=== PATIENT | male | born 1960 | race Hispanic/Latino ===

== ENCOUNTER 2019-10-18 19:07 | Emergency (ER) | payer OTHER, SELFPAY ==
[2019-10-18 20:33] LABS: Absolute Lymphocytes (CBC) 1.3 K/uL (0.7-4.9); Basophils % 0.1 % (0-1.3); Hematocrit 48.1 % (39.6-49.0); Lymphocytes % 11.7 % (15.3-44.8); MPV 8.2 fL (7.6-11.3); RBC Red Blood Cell Count 5.66 M/uL (4.33-5.43)
[2019-10-18] MEDS ORDERED: ONDANSETRON 4 MG/2 ML VIAL ONE (20:37)
[2019-10-18] MEDS ORDERED: MORPHINE 2 MG/ML SYR ONE (20:37)
[2019-10-18 20:51] LABS: Albumin 3.9 g/dL (3.4-5.0); Bilirubin Direct 0.1 mg/dL (0-0.2); Bilirubin Total 0.6 mg/dL (0.2-1.0); Potassium 3.6 mmol/L (3.5-5.1); Protein, Total 7.4 g/dL (6.4-8.2)
--- NOTE | 2019-10-18 21:12 | RAD REPORT ---
EXAM DESCRIPTION: CTAbdomen Pelvis W Contrast - 10/18/2019 9:01 pm CLINICAL HISTORY: Abdominal pain. Abd pain;Abdominal distention COMPARISON: CT ABD PELVIS W CONTRAST dated 08/07/2012 TECHNIQUE: Biphasic CT imaging of the abdomen and pelvis was performed with 100 ml non-ionic IV cont rast. All CT scans are performed using dose optimization technique as appropriate and may include automated exposure control or mA/KV adjustment according to patient size. FINDINGS: The lung bases are clear. Mild fatty liver is present. No focal mass or biliary dilatation seen. The spleen, pancreas, adrenal glands and right kidney are normal. Left renal calculi are present, largest inferiorly measuring 6 mm . No ureter or bladder calculi seen. No bowel obstruction, free air, free fluid or abscess. Fluid-filled and mildly dilated small bowel lo ops are present throughout the abdomen. The appendix is normal. Sigmoid diverticulosis coli is presen t without diverticulitis. No evidence of significant lymphadenopathy. Small fat containing inguinal h ernias. No suspicious bony findings. Prostate gland is enlarged and projects into the bladder base. IMPRESSION: Multiple fluid-filled small bowel loops are present throughout the abdomen. This pattern is favored to represent a nonspecific enteritis. Given that early bowel obstruction can have a similar appearance, repeat imaging would be recommended if symptoms progress or persist over time.
[2019-10-18] MEDS ORDERED: DICYCLOMINE HCL 10 MG CAP ONE (22:13)
--- NOTE | 2019-10-18 22:19 | ER ---
Nurse's Notes [facility] Name: Sal Ortiz Age: 59 yrs Sex: Male : 1960 Arrival Date: 10/18/2019 Time: 19:07 Bed 17 Private MD: Diagnosis: Unspecified abdominal pain;Diarrhea, unspecified Presentation: 10/17 19:32 Chief complaint: Patient's son or daughter states: Upper abdominal pain started ca1 yesterday. Mid and low back pain since yesterday. Reports diarrhea this morning. Denies N/V. Denies fever. Denies urinary symptoms. Coronavirus screen: Proceed with normal triage. Patient denies a cough. Patient denies shortness of breath or difficulty breathing. Patient denies measured and/or subjective temperature greater than 100.4F prior to today's visit. Patient denies travel on a cruise ship or to a country the [facility] currently lists as an affected area. Patient denies contact with known and/or suspected case of COVID-19. Ebola Screen: Patient negative for fever greater than or equal to 101.5 degrees Fahrenheit, and additional compatible Ebola Virus Disease symptoms Patient denies exposure to infectious person. Patient denies travel to an Ebola-affected area in the 21 days before illness onset. No symptoms or risks identified at this time. Initial Sepsis Screen: Does the patient meet any 2 criteria? No. Patient's initial sepsis screen is negative. Does the patient have a suspected source of infection? No. Patient's initial sepsis screen is negative. Risk Assessment: Do you want to hurt yourself or someone else? Patient reports no desire to harm self or others. Onset of symptoms was October 18, 2019. 19:32 Method Of Arrival: Ambulatory ca1 19:32 Acuity: HUMBERTO 2 ca1 Historical: - Allergies: 19:36 No Known Allergies; ca1 - Home Meds: 19:36 losartan oral oral [Active]; ca1 - PMHx: 19:36 Hypertension; ca1 - PSHx: 19:36 None; ca1 - Immunization history:: Adult Immunizations up to date. - Social history:: Smoking status: Patient denies any tobacco usage or history of. Screenin:35 Abuse screen: Denies threats or abuse. Nutritional screening: No deficits noted. jd3 Tuberculosis screening: No symptoms or risk factors identified. Fall Risk Ambulatory Aid- None/Bed Rest/Nurse Assist (0 pts). Gait- Normal/Bed Rest/Wheelchair (0 pts) Mental Status- Oriented to own ability (0 pts). Total Post Fall Scale indicates No Risk (0-24 pts). Assessment: 20:34 General: Appears in no apparent distress. uncomfortable, Behavior is calm, cooperative, jd3 appropriate for age. Pain: Denies pain. Neuro: Level of Consciousness is awake, alert, obeys commands, Oriented to person, place, time, situation. Cardiovascular: Denies chest pain, Capillary refill < 3 seconds Patient's skin is warm and dry. Respiratory: Airway is patent Respiratory effort is even, unlabored, Respiratory pattern is regular, symmetrical, Denies cough, shortness of breath. GI: Abdomen is round distended, Bowel sounds present X 4 quads. Abd is soft X 4 quads Abdomen is tender to palpation in right upper quadrant and left upper quadrant Reports diarrhea. : No signs and/or symptoms were reported regarding the genitourinary system. EENT: No signs and/or symptoms were reported regarding the EENT system. Derm: Skin is intact, Skin is dry, Skin is normal, Skin temperature is warm. Musculoskeletal: Circulation, motion, and sensation intact. Range of motion: intact in all extremities. 22:10 Reassessment: Patient appears in no apparent distress at this time. Patient and/or jd3 family updated on plan of care and expected duration. Pain level reassessed. Patient is alert, oriented x 3, equal unlabored respirations, skin warm/dry/pink. Patient states feeling better. 23:00 Reassessment: Patient appears in no apparent distress at this time. Patient and/or jd3 family updated on plan of care and expected duration. Pain level reassessed. Patient is alert, oriented x 3, equal unlabored respirations, skin warm/dry/pink. Patient states feeling better. Vital Signs: 19:32 BP 161 / 101; Pulse 87; Resp 18 S; Temp 98(TE); Pulse Ox 99% on R/A; Weight 99.79 kg ca1 (R); Height 5 ft. 9 in. (175.26 cm) (R); Pain 9/10; 20:36 BP 143 / 94; Pulse 89; Resp 16 S; Pulse Ox 97% on R/A; jd3 22:10 BP 137 / 93; Pulse 75; Resp 16 S; Pulse Ox 98% on R/A; jd3 23:00 BP 140 / 96; Pulse 76; Resp 16 S; Pulse Ox 98% on R/A; jd3 19:32 Body Mass Index 32.49 (99.79 kg, 175.26 cm) ca1 ED Course: 19:07 Patient arrived in ED. ds1 19:35 Triage completed. ca1 19:36 Arm band placed on right wrist. ca1 20:03 Anthony Galvan PA is PHCP. cp 20:03 Melisa Monk MD is Attending Physician. cp 20:15 Darion Bennett, RN is Primary Nurse. jd3 20:30 Inserted saline lock: 20 gauge in right antecubital area, using aseptic technique. jd3 Blood collected. 20:35 Patient has correct armband on for positive identification. Placed in gown. Bed in low jd3 position. Call light in reach. Side rails up X 1. Adult w/ patient. Pulse ox on. NIBP on. 21:01 CT Abd/Pelvis - IV Contrast Only In Process Unspecified. EDMS 22:59 No provider procedures requiring assistance completed. IV discontinued, intact, jd3 bleeding controlled, No redness/swelling at site. Pressure dressing applied. Administered Medications: 20:33 Drug: Zofran (Ondansetron) 4 mg Route: IVP; Site: right antecubital; jd3 21:30 Follow up: Response: No adverse reaction jd3 20:34 Drug: morphine 2 mg Route: IVP; Site: right antecubital; jd3 21:30 Follow up: Response: No adverse reaction; RASS: Alert and Calm (0) jd3 22:10 Drug: Bentyl 20 mg Route: PO; jd3 23:00 Follow up: Response: No adverse reaction jd3 Outcome: 22:18 Discharge ordered by . cp 23:00 Discharged to home ambulatory, with family. jd3 23:00 Condition: stable 23:00 Discharge instructions given to patient, family, Instructed on discharge instructions, follow up and referral plans. medication usage, Demonstrated understanding of instructions, follow-up care, medications, Prescriptions given X 1. 23:01 Patient left the ED. jd3 Signatures: Dispatcher [employer] EDPA Rivka Espinosa ds1 Anthony Galvan PA PA cp Davies, Jonathon, RN RN jd3 Paulette Mcgrath RN RN ca1 Corrections: (The following items were deleted from the chart) 19:35 19:32 Acuity: HUMBERTO 3 ca1 ca1 19:35 19:32 BP 161 / 101; Pulse 87bpm; Resp 18bpm; Spontaneous; Pulse Ox 99% RA; Temp 98F ca1 Temporal; 99.79 kg Reported; Height 5 ft. 9 in. Reported; BMI: 32.4; ca1
--- NOTE | 2019-10-18 22:19 | EDPHYS ---
Physician Documentation [facility] Name: Sal Ortiz Age: 59 yrs Sex: Male : 1960 Arrival Date: 10/18/2019 Time: 19:07 Bed 17 Private MD: ED Physician Melisa Monk HPI: 10/17 20:06 This 59 yrs old Male presents to ER via Ambulatory with complaints of Back cp Pain, Abdominal Pain. 20:06 The patient presents with abdominal pain in the upper abdomen. cp 20:06 Onset: The symptoms/episode began/occurred yesterday. cp 20:06 The symptoms radiate to back. cp 20:06 Associated signs and symptoms: Pertinent positives: diarrhea, Pertinent negatives: cp nausea and vomiting, blood in stools, chest pain, constipation, dysuria, fever, testicular pain. Historical: - Allergies: 19:36 No Known Allergies; ca1 - Home Meds: 19:36 losartan oral oral [Active]; ca1 - PMHx: 19:36 Hypertension; ca1 - PSHx: 19:36 None; ca1 - Immunization history:: Adult Immunizations up to date. - Social history:: Smoking status: Patient denies any tobacco usage or history of. ROS: 20:15 Constitutional: Negative for body aches, chills, fever, poor PO intake. cp 20:15 Eyes: Negative for injury, pain, redness, and discharge. cp 20:15 ENT: Negative for ear pain, sore throat, difficulty swallowing, difficulty handling secretions. 20:15 Cardiovascular: Negative for chest pain, palpitations. 20:15 Respiratory: Negative for cough, shortness of breath, wheezing. 20:15 Abdomen/GI: Positive for abdominal pain, diarrhea, abdominal distension, Negative for vomiting, constipation, black/tarry stool, rectal bleeding. 20:15 Back: Positive for radiated pain. 20:15 : Negative for urinary symptoms, hematuria, testicular pain 20:15 Neuro: Negative for altered mental status, headache, weakness. 20:15 All other systems are negative. Exam: 20:20 Constitutional: The patient appears in no acute distress, alert, awake, cp non-diaphoretic, non-toxic, well developed, well nourished. 20:20 Head/Face: Normocephalic, atraumatic. cp 20:20 Eyes: Periorbital structures: appear normal, Conjunctiva: normal, no exudate, no injection, Sclera: no appreciated abnormality, Lids and lashes: appear normal, bilaterally. 20:20 ENT: External ear(s): are unremarkable, Nose: is normal, Mouth: is normal, Posterior pharynx: Airway: no evidence of obstruction, patent. 20:20 Chest/axilla: Inspection: normal, Palpation: is normal, no crepitus, no tenderness. 20:20 Cardiovascular: Rate: normal, Rhythm: regular, Edema: is not appreciated, JVD: is not appreciated. 20:20 Respiratory: the patient does not display signs of respiratory distress, Respirations: normal, no use of accessory muscles, no retractions, labored breathing, is not present, Breath sounds: are clear throughout, no decreased breath sounds, no stridor, no wheezing. 20:20 Abdomen/GI: Inspection: distension, that is mild, Bowel sounds: active, all quadrants, Palpation: soft, in all quadrants, moderate abdominal tenderness, in the right upper quadrant and left upper quadrant, rebound tenderness, is not appreciated, involuntary guarding, is not appreciated. 20:20 Back: pain, that is mild, of the mid back area, ROM is normal, Straight leg raises: of both lower extremities does not illicit pain. 20:20 Skin: no rash present. Vital Signs: 19:32 BP 161 / 101; Pulse 87; Resp 18 S; Temp 98(TE); Pulse Ox 99% on R/A; Weight 99.79 kg ca1 (R); Height 5 ft. 9 in. (175.26 cm) (R); Pain 9/10; 20:36 BP 143 / 94; Pulse 89; Resp 16 S; Pulse Ox 97% on R/A; jd3 22:10 BP 137 / 93; Pulse 75; Resp 16 S; Pulse Ox 98% on R/A; jd3 23:00 BP 140 / 96; Pulse 76; Resp 16 S; Pulse Ox 98% on R/A; jd3 19:32 Body Mass Index 32.49 (99.79 kg, 175.26 cm) ca1 MDM: 20:03 Patient medically screened. cp 21:00 Differential diagnosis: bowel obstruction, cholecystitis, Cholelithiasis, cp diverticulitis, gastritis, non-specific abd pain, pancreatitis, Peptic Ulcer Disease, Perf. Duodenal Ulcer, Perf. Gastric Ulcer, Ureterolithiasis, urinary tract infection. 23:00 Data reviewed: vital signs, nurses notes, lab test result(s), radiologic studies, CT cp scan. 23:00 Counseling: I had a detailed discussion with the patient and/or guardian regarding: the cp historical points, exam findings, and any diagnostic results supporting the discharge/admit diagnosis, lab results, radiology results, to return to the emergency department if symptoms worsen or persist or if there are any questions or concerns that arise at home. Response to treatment: the patient's symptoms have markedly improved after treatment, VSS. Pain improved, and as a result, I will discharge patient. Special discussion: Based on the patient's Hx, exam, and Dx evaluation, there is no indication for emergent surgery or inpatient Tx. It is understood by the patient/guardian that if the Sx's persist or worsen they need to return immediately for re-evaluation. 10/17 20:07 Order name: Basic Metabolic Panel; Complete Time: 20:58 cp 10/17 22:19 Interpretation: Normal except: GLUC 147; GFR 82. cp 10/17 20:07 Order name: CBC with Diff; Complete Time: 20:58 cp 10/17 21:16 Interpretation: Normal except: RBC 5.66; MCV 84.9; AMY% 83.5; LYM% 11.7; NEUT A 9.0. cp 10/17 20:07 Order name: Hepatic Function; Complete Time: 20:58 cp 10/17 20:07 Order name: Lipase; Complete Time: 20:58 cp 10/17 20:07 Order name: CT Abd/Pelvis - IV Contrast Only; Complete Time: 21:15 cp 10/17 20:07 Order name: IV Saline Lock; Complete Time: 20:26 cp 10/17 20:07 Order name: Labs collected and sent; Complete Time: 20:26 cp 10/17 21:17 Order name: PO challenge; Complete Time: 22:10 cp Administered Medications: 20:33 Drug: Zofran (Ondansetron) 4 mg Route: IVP; Site: right antecubital; jd3 21:30 Follow up: Response: No adverse reaction jd3 20:34 Drug: morphine 2 mg Route: IVP; Site: right antecubital; jd3 21:30 Follow up: Response: No adverse reaction; RASS: Alert and Calm (0) jd3 22:10 Drug: Bentyl 20 mg Route: PO; jd3 23:00 Follow up: Response: No adverse reaction jd3 Disposition: 10/18 02:28 Co-signature as Attending Physician, Melisa Monk MD. ma2 Disposition: 10/18/19 22:18 Discharged to Home. Impression: Unspecified abdominal pain, Diarrhea, unspecified. - Condition is Stable. - Discharge Instructions: Abdominal Pain, Adult, Food Choices to Help Relieve Diarrhea, Adult, Diarrhea, Adult. - Prescriptions for Bentyl 20 mg Oral Tablet - take 2 tablets by ORAL route every 6 hours As needed; 30 tablet. - Medication Reconciliation Form, Thank You Letter, Antibiotic Education, Prescription Opioid Use form. - Follow up: Private Physician; When: 2 - 3 days; Reason: Worsening of condition. - Problem is new. - Symptoms have improved. Signatures: Dispatcher [employer] EDMS Anthony Galvan PA PA cp Davies, Jonathon, RN RN jd3 Alzahri, Mohammad, MD MD ma2 Paulette Mcgrath RN RN ca1 Corrections: (The following items were deleted from the chart) 10/17 23:01 22:18 10/18/2019 22:18 Discharged to Home. Impression: Unspecified abdominal pain; jd3 Diarrhea, unspecified. Condition is Stable. Forms are Medication Reconciliation Form, Thank You Letter, Antibiotic Education, Prescription Opioid Use. Follow up: Private Physician; When: 2 - 3 days; Reason: Worsening of condition. Problem is new. Symptoms have improved. cp
[2019-10-18 23:25] VITALS: TEMP 98
[2019-10-18 23:36] VITALS: O2SAT 98
[2019-10-18 23:38] VITALS: BP 140/96
== END 2019-10-18 23:01 | disposition home or self-care (01) ==
LOC: ER 19:07
DX: R19.7 Diarrhea, unspecified (principal); I10 Essential (primary) hypertension
CPT/HCPCS: 36415; 74177; 80048; 80076; 82565; 83690; 85025; 96374; 96375; 99284; J2270; J2405; Q9967